=== PATIENT | male | born 1995 | race Caucasian/White ===

== ENCOUNTER 2024-01-22 22:53 | Emergency (ER) | payer SELFPAY ==
--- NOTE | ~2024-01-22 | XR_ITS ---
Clinical Indication: Shortness of breath PA and lateral views of the chest: Comparison: None Findings: The lungs are clear, without evidence of focal consolidation or pleural effusion. Cardiome diastinal silhouette is within normal limits. Bones and soft tissues are unremarkable. Impression: Normal chest. Reviewed, dictated and finalized at [facility] [place]. ER TAR Impression: Normal chest.
[2024-01-22 22:55] VITALS: BP 122/56; PULSE 109; RESP 16; TEMP 36.3; O2SAT 97
--- NOTE | 2024-01-22 22:59 | ECG_ITS ---
Test Date: 2024-01-22 23:04:14 Measurements Intervals [place] Rate: 88 P: 72 OK: 121 QRS: 20 QRSD: 80 T: -8 QT: 328 QTc: 398 Interpretive Statements SINUS RHYTHM NONSPECIFIC ST AND T-WAVE ABNORMALITY ABNORMAL ECG Electronically Signed On 01-23-2024 09:01:08 EDUCATIONAL/DEVELOPMENT ASSISTANT by Cliff Souza M.D.
[2024-01-23 00:51] VITALS: BP 146/95; PULSE 87; PULSE 89; RESP 19; TEMP 37.2; O2SAT 100; O2SAT 97
[2024-01-23 00:51] LABS: Basophils Absolute Auto 0.1 K/mm3 (0.0-0.1); Basophils Percent Auto 0.9 % (0.2-1.2); Eosinophils Absolute Auto 0.9 K/mm3 (0-0.3); Hematocrit 47.1 % (42.0-52.0); Hemoglobin 15.9 g/dL (14.0-18.0); Immature Granulocyte Absolute 0.02 K/mm3 (0.00-0.031); Immature Granulocyte Percent A 0.2 % (0-0.5); Lymphocytes Absolute Auto 1.79 K/mm3 (0.9-3.2); Lymphocytes Percent Auto 18.7 % (18.3-44.2); Mean Corpuscular HGB Conc 33.8 g/dl (32-36); Mean Corpuscular Hemoglobin 30.1 pg (26-34); Mean Platelet Volume 11.2 fl (7.4-10.4); Monocytes Percent Auto 10.5 % (2.6-8.5); Neutrophils Absolute Auto 5.8 K/mm3 (1.3-6.7); Neutrophils Percent Auto 60.7 % (45.5-73.1); Platelet Count Result 223 k/mm3 (150-375); Red Blood Count 5.29 M/mm3 (4.6-6.20); Red Cell Distribution Width 12.6 % (11.5-14.5); White Blood Count 9.6 K/mm3 (4.5-10.0)
[2024-01-23 00:53] VITALS: O2SAT 100
--- NOTE | 2024-01-23 01:02 | ED_ITS ---
HPI - General Adult General Chief complaint: Shortness of Breath/Dyspnea Stated complaint: SOB Time Seen by Provider: 01/23/24 00:48 History of Present Illness HPI narrative: Patient is a 28-year-old gentleman who presents emergency department with chief complaint of shortness of breath patient has history of asthma reports that he recently was treated with steroids and reports that he has completed those about a week to 2 weeks ago the patient states that he started having worsening difficulty breathing this evening denies fever reports that his mucus has changed colors but denies fever. Related Data Allergies Allergy/AdvReac Type Severity Reaction Status Date / Time No Known Allergies Allergy Verified 01/23/24 01:02 Review of Systems Review of Systems: A 10 system review of systems was completed on the patient and is negative except for what is stated in the HPI. Nursing and ancillary documentation was reviewed. Exam Narrative: GENERAL: Well-appearing, well-nourished, and in no acute distress. HEAD: Normocephalic, atraumatic. EYES: PERRLA and EOMI. ENT: Nares clear, no rhinorrhea or epistaxis. Mucous membranes moist. NECK: Supple. CHEST: Clear to auscultation. No respiratory distress. HEART: Regular rate and rhythm. No murmur heard. Normal peripheral pulses. ABDOMEN: Soft, nontender, nondistended, normal active bowel sounds. EXTREMITIES: Normal range of motion. No edema. SKIN: Warm, dry, no rash. NEURO: No focal deficits. Alert and oriented x3. PSYCH: Normal mood and affect. Course Vital Signs Vital signs: Vital Signs Temperature 36.3 C L 01/22/24 22:55 Pulse Rate 109 H 01/22/24 22:55 Respiratory Rate 16 01/22/24 22:55 Blood Pressure 122/56 L 01/22/24 22:55 Pulse Oximetry 97 01/22/24 22:55 Oxygen Delivery Room Air 01/22/24 22:55 Temperature 37.2 C 01/23/24 00:51 Pulse Rate 89 01/23/24 00:51 Respiratory Rate 19 01/23/24 00:51 Blood Pressure 146/95 H 01/23/24 00:51 Pulse Oximetry 100 01/23/24 00:53 Oxygen Delivery Room Air 01/23/24 00:53 Medical Decision Making [facility] Narrative Medical decision making narrative: Differential diagnosis includes pneumonia, bronchitis, viral illness, bronchospasm The patient requested a nebulizer machine staying it helps him better than the inhaler. The patient was given a nebulizer treatment in the emergency department given a prescription for nebulizer machine and also given a prescription for nebulizer solution. The patient was also given a pulse of steroids and will be discharged home with a antitussive agent. Vital Signs Vital Signs: Vital Signs Temperature 36.3 C L 01/22/24 22:55 Pulse Rate 109 H 01/22/24 22:55 Respiratory Rate 16 01/22/24 22:55 Blood Pressure 122/56 L 01/22/24 22:55 Pulse Oximetry 97 01/22/24 22:55 Oxygen Delivery Room Air 01/22/24 22:55 Temperature 37.2 C 01/23/24 00:51 Pulse Rate 89 01/23/24 00:51 Respiratory Rate 19 01/23/24 00:51 Blood Pressure 146/95 H 01/23/24 00:51 Pulse Oximetry 100 01/23/24 00:53 Oxygen Delivery Room Air 01/23/24 00:53 Lab Data 01/23/24 00:46 01/23/24 00:46 Labs: Lab Results 01/23/24 Range/Units 00:46 WBC Pending RBC Pending Hgb Pending Hct Pending MCV Pending MCH Pending MCHC Pending RDW Pending Plt Count Pending MPV Pending Immature Gran % (Auto) Pending Neut % (Auto) Pending Lymph % (Auto) Pending Gillespie % (Auto) Pending Eos % (Auto) Pending Baso % (Auto) Pending Lymph # (Auto) Pending Gillespie # (Auto) Pending Eos # (Auto) Pending Baso # (Auto) Pending Abs Immat Gran (auto) Pending Absolute Neuts (auto) Pending Absolute Nucleated RBC Pending Nucleated RBC % Pending Sodium Pending Potassium Pending Chloride Pending Carbon Dioxide Pending Anion Gap Pending BUN Pending Creatinine Pending Estim Creat Clear Calc Pending Estimated GFR Pending Glucose Pending Calcium Pending Total Bilirubin Pending AST Pending ALT Pending Alkaline Phosphatase Pending Total Protein Pending Albumin Pending Discharge Plan Discharge Clinical Impression: Acute bronchitis with asthma Patient Disposition: Home, Self-Care Condition: Stable Instructions: Antibiotic Form, Acute Bronchitis (ED) Prescriptions: New prednisone 20 mg tablet 40 mg PO DAILY 5 Days Qty: 10 0RF benzonatate 200 mg capsule 200 mg PO TID PRN (Reason: cough) Qty: 21 0RF albuterol sulfate 2.5 mg /3 mL (0.083 %) solution for nebulization 2.5 mg inhalation Q4H PRN (Reason: bronchospasm) Qty: 90 0RF Follow-up/Referrals: PHYSICIAN NOT ON STAFF,NONSTAFF [Primary Care Provider] - Time of Disposition: 01:07
[2024-01-23 01:07] LABS: Alanine Aminotransferase 31 U/L (6-50); Albumin Level 4.6 g/dL (3.5-5.1); Alkaline Phosphatase 78 U/L (38-126); Anion Gap 4 mmol/L (4-12); Aspartate Amino Transferase 47 U/L (17-59); Bilirubin,Total 1.4 mg/dL (0.2-1.3); Blood Urea Nitrogen 24 mg/dL (9-20); Calcium 9.9 mg/dL (8.4-10.2); Carbon Dioxide 30 mmol/L (22-30); Chloride 102 mmol/L (98-107); Estimated CRCL calculation 87 ml/min; Estimated Glomerular Filt Rate > 60; Glucose 98 mg/dL (65-110); Potassium 4.2 mmol/L (3.4-5.0); Sodium 136 mmol/L (137-145)
[2024-01-23] MEDS: Please add drug allergy info to patient profile. 1 EACH XX (01:09)
[2024-01-23] MEDS: predniSONE 20 MG TABLET 60 MG PO (01:09)
[2024-01-23 01:11] VITALS: PULSE 78; RESP 16
[2024-01-23] MEDS: IPRATROPIUM 0.5 MG/ALBUTEROL SULFATE 2.5 MG AMPUL.NEB 3 ML INHALATION (01:11)
[2024-01-23 01:18] VITALS: PULSE 112; RESP 16
[2024-01-23 01:27] VITALS: O2SAT 100
== END 2024-01-23 01:29 | disposition home or self-care (01) ==
LOC: ANHED 01-23 01:11
PROVIDERS: Emergency Provider Emergency Medicine
DX: J20.9 Acute bronchitis, unspecified (principal); J45.909 Unspecified asthma, uncomplicated; R94.31 Abnormal electrocardiogram [ECG] [EKG]
CPT/HCPCS: 36415; 71046; 80053; 85025; 93005; 94640; 99284; J7512